=== PATIENT | female | born 1995 | race Caucasian/White ===

== ENCOUNTER 2023-02-03 05:58 | Day surgery (SDC) | payer BC ==
[2023-01-31 17:18] VITALS: BMI 44.4
[2023-01-31 17:28] LABS: Hematocrit 37.9 % (34.9-44.5); Hemoglobin 12.6 g/dL (12.0-15.5); Mean Corpuscular HGB CONC 33.2 g/dL (32.0-36.0); Mean Corpuscular Volume 84.2 fl (81.6-98.3); Mean Platelet Volume 9.9 fl (7.4-10.4); Platelet Count 279 10x3/uL (150-450); RBC Distribution Width 13.2 % (11.5-14.5); White Blood Cell (WBC) Count 11.7 10x3/uL (3.5-10.5)
[2023-01-31 17:30] LABS: BHCG - Serum Negative (NEGATIVE); Pregs Control Background? CLEAR/WHITE (CLR/WHITE); Pregs Control Bar Appear? YES (CONTROL BAR)
[2023-01-31 17:32] LABS: INR-International Normal Ratio 1.1; PTT 35.9 sec (22.0-33.0)
[2023-01-31 17:42] LABS: Anion Gap 16 mmol/L (10-20); BUN (Urea Nitrogen) 19 mg/dL (7.0-18.7); Calc. Creatinine Clearance 202 mL/min (70-130); Calcium 9.1 mg/dL (7.8-10.44); Carbon Dioxide 20 mmol/L (22-29); Chloride 104 mmol/L (98-107); Estimated GFR 101; Glucose 92 mg/dL (70-105); Potassium 4.1 mmol/L (3.5-5.1); Sodium 136 mmol/L (136-145)
[2023-02-03] MEDS ORDERED: Heparin 10,000 UNITS/ 10 ML VIAL ONE (06:42)
[2023-02-03] MEDS ORDERED: Isoproterenol 0.2 MG/1 ML AMP ONE (06:43)
[2023-02-03] MEDS ORDERED: Protamine Sulfate 50 MG/5 ML VIAL ONE (06:43)
[2023-02-03] MEDS ORDERED: Heparin 25,000 units/D5W 500 ML ONE (06:43)
[2023-02-03] MEDS ORDERED: Lidocaine 1% PF 5 ML VIAL ONE (07:54)
[2023-02-03] MEDS ORDERED: Dexamethasone 20 MG/5 ML VIAL ONE (07:54)
[2023-02-03] MEDS ORDERED: Rocuronium Bromide 10 MG/ML (10ML VIAL) ONE (07:54)
[2023-02-03] MEDS ORDERED: PROPOFOL 200 MG/20 ML VIAL ONE (07:54)
[2023-02-03] MEDS ORDERED: Ondansetron PF 4 MG/2 ML Vial ONE (07:54)
[2023-02-03] MEDS ORDERED: fentaNYL 50 mcg/mL 1 mL Vial ONE ×2 (07:57→10:25)
[2023-02-03] MEDS ORDERED: Midazolam HCl 2 mg/2 ml Vial ONE (07:57)
[2023-02-03] MEDS ORDERED: SUGAMMADEX SODIUM 200 MG/2 ML VIAL ONE (10:22)
== END 2023-02-03 14:30 | disposition home or self-care (01) ==
LOC: SDC 05:58
PROVIDERS: ATTEND Internal Medicine Cardiovascular Disease
PROC: 4A023FZ Measurement of Cardiac Rhythm, Percutaneous Approach (ICD-10-PCS; principal; 2023-02-03)
PROC: 02583ZZ Destruction of Conduction Mechanism, Percutaneous Approach (ICD-10-PCS; principal; 2023-02-03)
PROC: 4A0234Z Measurement of Cardiac Electrical Activity, Percutaneous Approach (ICD-10-PCS; principal; 2023-02-03)
DX: I48.0 Paroxysmal atrial fibrillation (principal); Z88.0 Allergy status to penicillin; Z91.02 Food additives allergy status
CPT/HCPCS: 80048; 84703; 85027; 85347; 85610; 85730; 93005; 93010; 93622; 93623; 93656; C1732; C1759; C1760; C1894; J1100; J1644; J2250; J2405; J2704; J2720; J3010